=== PATIENT | male | born 1995 | race Hispanic/Latino ===

== ENCOUNTER 2017-12-10 22:16 | Emergency (ER) | payer SELFPAY ==
--- NOTE | 2017-12-11 03:16 | EDPHYS ---
Physician Documentation [facility] Name: Nirmal Stein Age: 22 yrs Sex: Male : 1995 Arrival Date: 12/10/2017 Time: 22:18 Bed 26 Private MD: ED Physician Stephen Mays HPI: 12/11 01:00 This 22 yrs old Male presents to ER via Ambulatory with complaints of Fever, pm1 bodyaches. 01:00 Onset: The symptoms/episode began/occurred today. Modifying factors: there are no pm1 obvious modifying factors. Associated signs and symptoms: Pertinent negatives: cough, diarrhea, headache, shortness of breath, sore throat, vomiting. The patient has not experienced similar symptoms in the past. The patient has not recently seen a physician. Historical: - Allergies: 12/10 22:42 No Known Allergies; fc - Home Meds: 22:42 None [Active]; fc - PMHx: 22:42 None; fc - PSHx: 22:42 None; fc - Immunization history:: Last tetanus immunization: unknown. - Social history:: Smoking status: Patient uses tobacco products, smokes one-half pack cigarettes per day, Patient uses alcohol, occasionally. - Ebola Screening: : Patient negative for fever greater than or equal to 101.5 degrees Fahrenheit, and additional compatible Ebola Virus Disease symptoms Patient denies exposure to infectious person Patient denies travel to an Ebola-affected area in the 21 days before illness onset. ROS: 12/11 01:00 Eyes: Negative for injury, pain, redness, and discharge, ENT: Negative for injury, pm1 pain, and discharge, Neck: Negative for injury, pain, and swelling, Cardiovascular: Negative for chest pain, palpitations, and edema. Respiratory: Negative for shortness of breath, cough, wheezing, and pleuritic chest pain, Abdomen/GI: Negative for abdominal pain, nausea, vomiting, diarrhea, and constipation, Back: Negative for injury and pain, : Negative for injury, bleeding, discharge, and swelling, MS/Extremity: Negative for injury and deformity, Skin: Negative for injury, rash, and discoloration, Neuro: Negative for headache, weakness, numbness, tingling, and seizure. Constitutional: Positive for fever, Negative for poor PO intake. Exam: 01:00 Constitutional: This is a well developed, well nourished patient who is awake, alert, pm1 and in no acute distress. Head/Face: Normocephalic, atraumatic. Eyes: Pupils equal round and reactive to light, extra-ocular motions intact. Lids and lashes normal. Conjunctiva and sclera are non-icteric and not injected. Cornea within normal limits. Periorbital areas with no swelling, redness, or edema. ENT: Nares patent. No nasal discharge, no septal abnormalities noted. Tympanic membranes are normal and external auditory canals are clear. Oropharynx with no redness, swelling, or masses, exudates, or evidence of obstruction, uvula midline. Mucous membranes moist. Neck: Trachea midline, no thyromegaly or masses palpated, and no cervical lymphadenopathy. Supple, full range of motion without nuchal rigidity, or vertebral point tenderness. No Meningismus. Chest/axilla: Normal chest wall appearance and motion. Nontender with no deformity. No lesions are appreciated. Cardiovascular: Regular rate and rhythm with a normal S1 and S2. No gallops, murmurs, or rubs. Normal PMI, no JVD. No pulse deficits. Respiratory: Lungs have equal breath sounds bilaterally, clear to auscultation and percussion. No rales, rhonchi or wheezes noted. No increased work of breathing, no retractions or nasal flaring. Abdomen/GI: Soft, non-tender, with normal bowel sounds. No distension or tympany. No guarding or rebound. No evidence of tenderness throughout. Back: No spinal tenderness. No costovertebral tenderness. Full range of motion. Skin: Warm, dry with normal turgor. Normal color with no rashes, no lesions, and no evidence of cellulitis. MS/ Extremity: Pulses equal, no cyanosis. Neurovascular intact. Full, normal range of motion. 01:00 Neuro: Orientation: is normal, Motor: is normal, moves all fours, Gait: is steady, at a normal pace, without difficulty. Vital Signs: 12/10 22:25 BP 142 / 82; Pulse 108; Resp 20; Temp 99.5(O); Pulse Ox 96% on R/A; Weight 108.86 kg fc (R); Height 5 ft. 5 in. (165.10 cm) (R); Pain 6/10; 22:52 BP 121 / 82; Pulse 103; Resp 18; Pulse Ox 100% on R/A; Pain 4/10; mg2 23:57 BP 108 / 69; Pulse 97; Resp 18; Pulse Ox 98% on R/A; mg2 12/11 01:22 BP 110 / 70; Pulse 99; Resp 18; Temp 98.6(O); Pulse Ox 100% ; Pain 0/10; mg2 02:32 BP 111 / 58; Pulse 100; Resp 18; Pulse Ox 100% on R/A; mg2 12/10 22:25 Body Mass Index 39.94 (108.86 kg, 165.10 cm) fc MDM: 12/10 22:43 Patient medically screened. pm1 12/11 03:06 Data reviewed: vital signs. Data interpreted: Pulse oximetry: on room air is 100 %. pm1 Interpretation: normal. Counseling: I had a detailed discussion with the patient and/or guardian regarding: the historical points, exam findings, and any diagnostic results supporting the discharge/admit diagnosis, radiology results, the need for outpatient follow up, to return to the emergency department if symptoms worsen or persist or if there are any questions or concerns that arise at home. 12/10 22:56 Order name: Flu; Complete Time: 15:26 pm1 12/10 23:01 Order name: Strep; Complete Time: 00:14 pm1 12/10 23:01 Order name: Chest Pa And Lat (2 Views) XRAY; Complete Time: 15:26 pm1 12/11 00:12 Order name: Throat Culture EDMS Administered Medications: 12/10 23:02 Drug: Tylenol 1000 mg Route: PO; mg2 12/11 00:54 Follow up: Response: No adverse reaction; Marked relief of symptoms mg2 Disposition: 12/11/17 03:15 Discharged to Home. Impression: Influenza due to unidentified influenza virus. - Condition is Stable. - Discharge Instructions: Influenza, Adult. - Prescriptions for Tamiflu 75 mg Oral Capsule - take 1 tablet by ORAL route every 12 hours for 5 days; 10 tablet. - Work release form, Medication Reconciliation Form, Thank You Letter, Antibiotic Education, Prescription Opioid Use form. - Follow up: Emergency Department; When: As needed; Reason: Worsening of condition. Follow up: Private Physician; When: 2 - 3 days; Reason: Recheck today's complaints, Continuance of care, Re-evaluation by your physician. - Problem is new. - Symptoms have improved. Addendum: 12/15/2017 12:05 Co-signature as Attending Physician, Stephen Mays MD. g s Signatures: Dispatcher [employer] EDMS Phyllis Salomon RN RN Nash Crews, SAP DEVELOPER SAP DEVELOPER pm1 Stephen Mays MD MD Emir Torres, RN RN mg2 Corrections: (The following items were deleted from the chart) 12/11 03:21 03:15 12/11/2017 03:15 Discharged to Home. Impression: Influenza due to unidentified mg2 influenza virus. Condition is Stable. Forms are Medication Reconciliation Form, Thank You Letter, Antibiotic Education, Prescription Opioid Use. Follow up: Emergency Department; When: As needed; Reason: Worsening of condition. Follow up: Private Physician; When: 2 - 3 days; Reason: Recheck today's complaints, Continuance of care, Re-evaluation by your physician. Problem is new. Symptoms have improved. pm1
--- NOTE | 2017-12-11 03:16 | ER ---
Nurse's Notes [facility] Name: Nirmal Stein Age: 22 yrs Sex: Male : 1995 Arrival Date: 12/10/2017 Time: 22:18 Bed 26 Private MD: Diagnosis: Influenza due to unidentified influenza virus Presentation: 12/10 22:25 Presenting complaint: Patient states: that since yesterday he has had a fever and body fc aches, along with nausea. Denies any cough, congestion, sore throat or ear pain. Transition of care: patient was not received from another setting of care. Onset of symptoms was December 09, 2017. Risk Assessment: Do you want to hurt yourself or someone else? Patient reports no desire to harm self or others. Initial Sepsis Screen: Does the patient meet any 2 criteria? HR > 90 bpm. Does the patient have a suspected source of infection? No. Patient's initial sepsis screen is negative. Care prior to arrival: Medication(s) given: Motrin, 400 mg, last at 1930. 22:25 Method Of Arrival: Ambulatory fc 22:25 Acuity: GARRETT 4 fc Historical: - Allergies: 22:42 No Known Allergies; fc - Home Meds: 22:42 None [Active]; fc - PMHx: 22:42 None; fc - PSHx: 22:42 None; fc - Immunization history:: Last tetanus immunization: unknown. - Social history:: Smoking status: Patient uses tobacco products, smokes one-half pack cigarettes per day, Patient uses alcohol, occasionally. - Ebola Screening: : Patient negative for fever greater than or equal to 101.5 degrees Fahrenheit, and additional compatible Ebola Virus Disease symptoms Patient denies exposure to infectious person Patient denies travel to an Ebola-affected area in the 21 days before illness onset. Screenin:25 Abuse screen: Denies threats or abuse. Nutritional screening: No deficits noted. fc Tuberculosis screening: No symptoms or risk factors identified. Fall Risk None identified. Assessment: 22:50 General: Appears in no apparent distress. comfortable, Behavior is calm, cooperative. mg2 Pain: Complains of pain in body Pain does not radiate. Pain currently is 4 out of 10 on a pain scale. Quality of pain is described as aching, Pain began gradually, 1 day ago. Is intermittent, Alleviated by medications, rest. Neuro: Level of Consciousness is awake, alert, obeys commands, Oriented to person, place, time, situation. Cardiovascular: Capillary refill < 3 seconds Patient's skin is warm and dry. Respiratory: Airway is patent Respiratory effort is even, unlabored, Respiratory pattern is regular, symmetrical. Respiratory: Breath sounds are clear bilaterally. in right upper lobe, left upper lobe, right middle lobe, left lower lobe, left posterior upper lobe, right posterior upper lobe, left posterior lower lobe, right posterior middle lobe and right posterior lower lobe. GI: Reports nausea. : No signs and/or symptoms were reported regarding the genitourinary system. EENT: No signs and/or symptoms were reported regarding the EENT system. Derm: Skin is intact, Skin is pink, warm \T\ dry. normal. Musculoskeletal: Circulation, motion, and sensation intact. 12/11 01:22 Reassessment: Patient appears in no apparent distress at this time. Patient and/or mg2 family updated on plan of care and expected duration. Pain level reassessed. Patient is alert, oriented x 3, equal unlabored respirations, skin warm/dry/pink. patient is willing to wait for flu test result. 02:32 Reassessment: Patient appears in no apparent distress at this time. Patient and/or mg2 family updated on plan of care and expected duration. Pain level reassessed. Patient is alert, oriented x 3, equal unlabored respirations, skin warm/dry/pink. Vital Signs: 12/10 22:25 BP 142 / 82; Pulse 108; Resp 20; Temp 99.5(O); Pulse Ox 96% on R/A; Weight 108.86 kg fc (R); Height 5 ft. 5 in. (165.10 cm) (R); Pain 6/10; 22:52 BP 121 / 82; Pulse 103; Resp 18; Pulse Ox 100% on R/A; Pain 4/10; mg2 23:57 BP 108 / 69; Pulse 97; Resp 18; Pulse Ox 98% on R/A; mg2 12/11 01:22 BP 110 / 70; Pulse 99; Resp 18; Temp 98.6(O); Pulse Ox 100% ; Pain 0/10; mg2 02:32 BP 111 / 58; Pulse 100; Resp 18; Pulse Ox 100% on R/A; mg2 12/10 22:25 Body Mass Index 39.94 (108.86 kg, 165.10 cm) ED Course: 12/10 22:18 Patient arrived in ED. ds1 22:25 Arm band placed on Patient placed in an exam room, on a stretcher. fc 22:25 Patient has correct armband on for positive identification. Bed in low position. Call light in reach. Pulse ox on. NIBP on. 22:39 Emir Torres RN is Primary Nurse. mg2 22:41 Triage completed. 22:41 Nash Crews NP is PHCP. pm1 22:41 Stephen Mays MD is Attending Physician. pm1 12/11 00:23 Radiology exam delayed due to CODE 99. tm4 00:24 Patient moved to radiology via wheelchair. tm4 00:24 X-ray completed. Patient tolerated procedure well. tm4 00:24 Patient moved back from radiology. tm4 00:27 Chest Pa And Lat (2 Views) XRAY In Process Unspecified. EDMS 03:14 No provider procedures requiring assistance completed. Patient did not have IV access mg2 during this emergency room visit. Administered Medications: 12/10 23:02 Drug: Tylenol 1000 mg Route: PO; mg2 12/11 00:54 Follow up: Response: No adverse reaction; Marked relief of symptoms mg2 Outcome: 03:15 Discharge ordered by MD. pm1 03:20 Discharged to home ambulatory, with family. mg2 03:20 Condition: stable 03:20 Discharge instructions given to patient, family, Instructed on discharge instructions, follow up and referral plans. medication usage, Demonstrated understanding of instructions, follow-up care, medications, Prescriptions given X 1. 03:21 Patient left the ED. mg2 Signatures: Dispatcher [employer] EDMS Debby Butt tm4 Phyllis Salomon RN RN [place]ales[place]elli ds1 Nash Crews NP MOTTLER MACHINE FEEDER pm1 Emir Torres RN RN mg2 Corrections: (The following items were deleted from the chart) 12/10 23:59 23:59 No provider procedures requiring assistance completed. mg2 mg2 23:59 23:59 Patient admitted, IV remains in place. mg2 mg2
--- NOTE | 2017-12-11 08:00 | RAD REPORT ---
EXAM DESCRIPTION: RAD - Chest Pa And Lat (2 Views) - 12/11/2017 12:27 am CLINICAL HISTORY: Fever COMPARISON: March 2017 TECHNIQUE: PA and lateral views of the chest were obtained. FINDINGS: The lungs are clear. Heart size is normal and central vasculature is within normal limit s. No pleural effusion or pneumothorax seen. No acute bony finding noted. No aortic abnormality. IMPRESSION: No acute cardiopulmonary process. No suspicious interval change.
== END 2017-12-11 03:21 | disposition home or self-care (01) ==
LOC: ER 22:16
DX: J11.1 Influenza due to unidentified influenza virus with other respiratory manifestations (principal); F17.210 Nicotine dependence, cigarettes, uncomplicated
CPT/HCPCS: 71046; 87070; 87081; 87804; 99284

== ENCOUNTER 2020-06-25 03:55 | Emergency (ER) | payer SELFPAY ==
[2020-06-25] MEDS ORDERED: METHYLPREDNISOLONE 125 MG INJ ONE (04:30)
[2020-06-25] MEDS ORDERED: DIPHENHYDRAMINE 50 MG/ML VIAL ONE (04:30)
[2020-06-25] MEDS ORDERED: FAMOTIDINE 20 MG/2 ML VIAL IV ONE (04:31)
--- NOTE | 2020-06-25 05:26 | ER ---
Nurse's Notes [facility] Name: Nirmal Stein Age: 25 yrs Sex: Male : 1995 Arrival Date: 06/25/2020 Time: 03:57 Bed 20 Private MD: Diagnosis: Urticaria, unspecified Presentation: 06/25 04:05 Chief complaint: Patient states: i have rash all over me started 2 hours ago. mg2 Coronavirus screen: Client denies travel out of the [place] in the last 14 days. Client reports previous positive COVID test result. Date of collection: June 06, 2020. Ebola Screen: No symptoms or risks identified at this time. Initial Sepsis Screen: Does the patient meet any 2 criteria? No. Patient's initial sepsis screen is negative. Does the patient have a suspected source of infection? No. Patient's initial sepsis screen is negative. Risk Assessment: Do you want to hurt yourself or someone else? Patient reports no desire to harm self or others. Onset of symptoms was June 25, 2020 at 02:00. 04:05 Method Of Arrival: Ambulatory mg2 04:05 Acuity: GARRETT 4 mg2 Historical: - Allergies: 04:07 No Known Allergies; mg2 - Home Meds: 04:07 None [Active]; mg2 - PMHx: 04:07 None; mg2 - PSHx: 04:07 None; mg2 - Immunization history:: Flu vaccine status is unknown. - Social history:: Smoking status: Patient denies any tobacco usage or history of. Patient/guardian denies using alcohol, street drugs, IV drugs. - Family history:: not pertinent. - Hospitalizations: : No recent hospitalization is reported. Screenin:18 Abuse screen: Denies threats or abuse. Denies injuries from another. Nutritional mg2 screening: No deficits noted. Tuberculosis screening: No symptoms or risk factors identified. Fall Risk IV access (20 points). Assessment: 04:19 General: Appears in no apparent distress. comfortable, Behavior is calm, cooperative. mg2 Pain: Denies pain. Neuro: Level of Consciousness is awake, alert, obeys commands, Oriented to person, place, time, situation. Cardiovascular: Capillary refill < 3 seconds Patient's skin is warm and dry. Respiratory: Airway is patent Respiratory effort is even, unlabored, Respiratory pattern is regular, symmetrical. GI: No signs and/or symptoms were reported involving the gastrointestinal system. : No signs and/or symptoms were reported regarding the genitourinary system. EENT: No signs and/or symptoms were reported regarding the EENT system. Derm: Rash noted that is itchy, on head, neck, chest, left arm and right leg. Musculoskeletal: Circulation, motion, and sensation intact. Capillary refill < 3 seconds. 05:20 Reassessment: Patient appears in no apparent distress at this time. Patient states mg2 feeling better. Patient states symptoms have improved. Vital Signs: 04:05 BP 156 / 102; Pulse 69; Resp 18; Temp 97.9; Pulse Ox 100% on R/A; Weight 104.33 kg; mg2 Height 5 ft. 5 in. (165.10 cm); Pain 0/10; 05:15 BP 145 / 80; Pulse 70; Resp 18; Temp 98; Pulse Ox 100% on R/A; mg2 04:05 Body Mass Index 38.27 (104.33 kg, 165.10 cm) mg2 ED Course: 03:57 Patient arrived in ED. cl3 04:00 Vinny Fang MD is Attending Physician. rn 04:04 Emir Torres RN is Primary Nurse. mg2 04:06 Triage completed. mg2 04:07 Arm band placed on. mg2 04:10 Inserted saline lock: 20 gauge in right antecubital area, using aseptic technique. mg2 04:18 No provider procedures requiring assistance completed. mg2 04:20 Patient has correct armband on for positive identification. Door closed. mg2 05:30 IV discontinued, intact, bleeding controlled, No redness/swelling at site. Pressure mg2 dressing applied. Administered Medications: 04:18 Drug: SOLU-Medrol 125 mg Route: IVP; Site: right antecubital; mg2 05:22 Follow up: Response: No adverse reaction; Marked relief of symptoms mg2 04:18 Drug: Benadryl (diphenhydrAMINE) 50 mg Route: IVP; Site: right antecubital; mg2 05:22 Follow up: Response: No adverse reaction; Marked relief of symptoms mg2 04:18 Drug: Pepcid (famotidine) 20 mg Route: IVP; Site: right antecubital; mg2 05:22 Follow up: Response: No adverse reaction; Marked relief of symptoms mg2 Outcome: 05:26 Discharge ordered by . rn 05:30 Discharged to home ambulatory. mg2 05:30 Condition: stable 05:30 Discharge instructions given to patient, Instructed on discharge instructions, follow up and referral plans. medication usage, Demonstrated understanding of instructions, follow-up care, medications, Prescriptions given X 1. 05:31 Patient left the ED. mg2 Signatures: Vinny Fang MD MD rn Emir Torres RN RN mg2 Afsaneh Garcia cl3
--- NOTE | 2020-06-25 05:27 | EDPHYS ---
Physician Documentation [facility] Name: Nirmal Stein Age: 25 yrs Sex: Male : 1995 Arrival Date: 06/25/2020 Time: 03:57 Bed 20 Private MD: ED Physician Vinny Fang HPI: 06/25 04:16 This 25 yrs old Male presents to ER via Ambulatory with complaints of Rash. rn 04:16 The patient's rash thought to be caused by an unknown cause. The rash is located on the rn body diffusely. The rash can be described as erythematous, urticarial. Onset: The symptoms/episode began/occurred this morning. Associated signs and symptoms: Pertinent positives: itching, Pertinent negatives: fever. Severity of symptoms: At their worst the symptoms were mild in the emergency department the symptoms are unchanged. 04:20 The patient has not experienced similar symptoms in the past. The patient has not rn recently seen a physician. Reports woke up with rash and itching. No new exposure. No sob. No abd pain. No fever. . Historical: - Allergies: 04:07 No Known Allergies; mg2 - Home Meds: 04:07 None [Active]; mg2 - PMHx: 04:07 None; mg2 - PSHx: 04:07 None; mg2 - Immunization history:: Flu vaccine status is unknown. - Social history:: Smoking status: Patient denies any tobacco usage or history of. Patient/guardian denies using alcohol, street drugs, IV drugs. - Family history:: not pertinent. - Hospitalizations: : No recent hospitalization is reported. ROS: 04:20 Constitutional: Negative for fever, chills, and weight loss, Eyes: Negative for injury, rn pain, redness, and discharge, ENT: Negative for injury, pain, and discharge, Cardiovascular: Negative for chest pain, palpitations, and edema, Respiratory: Negative for shortness of breath, cough, wheezing, and pleuritic chest pain, Abdomen/GI: Negative for abdominal pain, nausea, vomiting, diarrhea, and constipation, Skin: + diffuse urticaria Exam: 04:20 Constitutional: This is a well developed, well nourished patient who is awake, alert, rn and in no acute distress. Head/Face: Normocephalic, atraumatic. ENT: No intraoral lesions Cardiovascular: Regular rate and rhythm . No pulse deficits. Respiratory: No increased work of breathing, no retractions or nasal flaring. Skin: Diffuse urticaria, no bullae. No petechiae. MS/ Extremity: Pulses equal, no cyanosis. Neurovascular intact. Full, normal range of motion. Equal circumference. Neuro: Awake and alert, GCS 15, oriented to person, place, time, and situation. Vital Signs: 04:05 BP 156 / 102; Pulse 69; Resp 18; Temp 97.9; Pulse Ox 100% on R/A; Weight 104.33 kg; mg2 Height 5 ft. 5 in. (165.10 cm); Pain 0/10; 05:15 BP 145 / 80; Pulse 70; Resp 18; Temp 98; Pulse Ox 100% on R/A; mg2 04:05 Body Mass Index 38.27 (104.33 kg, 165.10 cm) mg2 MDM: 04:00 Patient medically screened. rn 05:25 Differential diagnosis: allergic reaction. Data reviewed: vital signs, nurses notes, rn and as a result, I will discharge patient. Counseling: I had a detailed discussion with the patient and/or guardian regarding: the historical points, exam findings, and any diagnostic results supporting the discharge/admit diagnosis, the need for outpatient follow up, to return to the emergency department if symptoms worsen or persist or if there are any questions or concerns that arise at home. Response to treatment: the patient's symptoms have markedly improved after treatment, and as a result, I will discharge patient. Special discussion: I discussed with the patient/guardian in detail that at this point there is no indication for admission to the hospital. It is understood, however, that if the symptoms persist or worsen the patient needs to return immediately for re-evaluation. 06/25 04:07 Order name: IV Start; Complete Time: 04:11 rn Administered Medications: 04:18 Drug: SOLU-Medrol 125 mg Route: IVP; Site: right antecubital; mg2 05:22 Follow up: Response: No adverse reaction; Marked relief of symptoms mg2 04:18 Drug: Benadryl (diphenhydrAMINE) 50 mg Route: IVP; Site: right antecubital; mg2 05:22 Follow up: Response: No adverse reaction; Marked relief of symptoms mg2 04:18 Drug: Pepcid (famotidine) 20 mg Route: IVP; Site: right antecubital; mg2 05:22 Follow up: Response: No adverse reaction; Marked relief of symptoms mg2 Disposition: 06/25/20 05:26 Discharged to Home. Impression: Urticaria, unspecified. - Condition is Stable. - Discharge Instructions: Hives. - Prescriptions for Prednisone 20 mg Oral Tablet - take 3 tablet by ORAL route once daily for 5 days; 15 tablet. - Medication Reconciliation Form, Thank You Letter, Antibiotic Education, Prescription Opioid Use form. - Follow up: Private Physician; When: As needed; Reason: Recheck today's complaints, Re-evaluation by your physician. - Problem is new. - Symptoms have improved. Signatures: Vinny Fang MD MD rn Gardose, Michele, RN RN mg2 Corrections: (The following items were deleted from the chart) 05:31 05:26 06/25/2020 05:26 Discharged to Home. Impression: Urticaria, unspecified. mg2 Condition is Stable. Forms are Medication Reconciliation Form, Thank You Letter, Antibiotic Education, Prescription Opioid Use. Follow up: Private Physician; When: As needed; Reason: Recheck today's complaints, Re-evaluation by your physician. Problem is new. Symptoms have improved. rn
[2020-06-25 16:37] VITALS: O2SAT 100
[2020-06-25 16:39] VITALS: BP 145/80; TEMP 98
== END 2020-06-25 05:31 | disposition home or self-care (01) ==
LOC: ER 03:55
DX: L50.9 Urticaria, unspecified (principal)
CPT/HCPCS: 96374; 96375; 99283; J1200; J2930

== ENCOUNTER 2021-05-31 13:29 | Emergency (ER) | payer SELFPAY ==
--- OUTSIDE RECORDS SUMMARY | 2021-05-31 13:31 | XMS REPORT | Continuity of Care Document ---
:1995 Author Organization [facility] Address [address] [place] [address] Dr. Ross [address] [place] [id number] Care Team Providers Name Role Phone HENRIQUE Attending Clinician Unavailable HENRIQUE Admitting Clinician Unavailable Payers Payer Name Policy Type Policy Number Effective Date Expiration Date S ource Problems This patient has no known problems. Allergies, Adverse Reactions, Alerts This patient has no known allergies or adverse reactions. Medications This patient has no known medications. Procedures This patient has no known procedures. Encounters Start End Encounter Admission Attending Care Care Encounter Source Date/Time Date/Time Type Type Clinicians Facility Department ID 2019-10-31 2019-10-[address] [facility] [id number] [place] 04:46:00 04:46:00 [id number] da [facility] Program Results This patient has no known results.
[2021-05-31 14:09] LABS: Urine Blood 2+ (Negative); Urine Glucose Negative (Negative); Urine Protein 2+ (Negative); Urine Specific Gravity >=1.030 (1.005-1.030)
[2021-05-31 14:44] LABS: Absolute Lymphocytes (CBC) 1.5 K/uL (0.7-4.9); Hematocrit 43.4 % (39.6-49.0); Lymphocytes % 16.3 % (15.3-44.8); MPV 7.6 fL (7.6-11.3); RBC Red Blood Cell Count 4.95 M/uL (4.33-5.43)
[2021-05-31 15:02] LABS: ALT/SGPT 64 U/L (12-78); AST/SGOT 29 U/L (15-37); Albumin 3.9 g/dL (3.4-5.0); Alkaline Phosphatase 72 U/L (45-117); BUN Blood Urea Nitrogen 13 mg/dL (7-18); Bicarbonate 24 mmol/L (21-32); Bilirubin Direct 0.2 mg/dL (0-0.2); Bilirubin Total 0.8 mg/dL (0.2-1.0); Glucose Level 104 mg/dL (74-106); Lipase 43 U/L (73-393); Potassium 3.6 mmol/L (3.5-5.1); Protein, Total 7.6 g/dL (6.4-8.2); Sodium Level 140 mmol/L (136-145)
--- NOTE | 2021-05-31 15:09 | RAD REPORT ---
EXAM DESCRIPTION: CT - Stone Protocol - 05/31/2021 2:53 pm CLINICAL HISTORY: Flank pain. FLANK PAIN COMPARISON: No comparisons TECHNIQUE: Axial images were obtained without oral or IV contrast. Lack of contrast limits solid org an and vascular assessment. The [id number] spans the entirety of the system partially obscuring uppermost abdomen and lung bases. Coronal reformatted images were obtained and reviewed. All CT scans are performed using dose optimization technique as appropriate and may include automated exposure control or mA/KV adjustment according to patient size. FINDINGS: The lower lung carter are clear. Diffuse fatty liver is present.Spleen is normal. The pancreas and adrenal glands are normal. No patho logic lymphadenopathy in the abdomen or pelvis. 3 mm calculus is present inferior calyx left kidney. Punctate calculus is also present in the urinary bladder measuring 2 mm. This may be a recently passed calculus from the right side. Small 21 mm hypo dense lesion is seen anterior superior left kidney, possibly a cyst but incompletely assessed on this limited noncontrast study. . No bowel obstruction, free air, free fluid or abscess. Normal appendix noted. No significant bony abnormality. IMPRESSION: 2 mm calculus is seen in the urinary bladder towards the right which may be recently pas sed. 3 mm calculus inferior calyx left kidney.
--- NOTE | 2021-05-31 16:34 | ER ---
Nurse's Notes [facility] Name: Nirmal Stein Age: 26 yrs Sex: Male : 1995 Arrival Date: 05/31/2021 Time: 13:32 Bed 13 Private MD: Diagnosis: Calculus of ureter Presentation: 05/31 13:39 Chief complaint: Patient states: "My side hurts and when I pee it norris." Pt denies ab2 blood in urine. Pt states he is having urinary frequency and urgency. Coronavirus screen: Vaccine status: Patient reports receiving the 2nd dose of the covid vaccine. Client denies travel out of the [place] in the last 14 days. At this time, the client does not indicate any symptoms associated with coronavirus-19. Ebola Screen: Patient negative for fever greater than or equal to 101.5 degrees Fahrenheit, and additional compatible Ebola Virus Disease symptoms Patient denies exposure to infectious person. Patient denies travel to an Ebola-affected area in the 21 days before illness onset. No symptoms or risks identified at this time. Initial Sepsis Screen: Does the patient meet any 2 criteria? No. Patient's initial sepsis screen is negative. Does the patient have a suspected source of infection? No. Patient's initial sepsis screen is negative. Risk Assessment: Do you want to hurt yourself or someone else? Patient reports no desire to harm self or others. Onset of symptoms is unknown. 13:39 Method Of Arrival: Ambulatory ab2 13:39 Acuity: GARRETT 3 ab2 Triage Assessment: 13:42 General: Appears in no apparent distress. uncomfortable, Behavior is calm, cooperative, ab2 appropriate for age. Pain: Complains of pain in right low back Pain does not radiate. Pain currently is 8 out of 10 on a pain scale. : Reports burning with urination, urgency, urinary frequency. Musculoskeletal: Range of motion: intact in all extremities. Historical: - Allergies: 13:41 No Known Allergies; ab2 - Home Meds: 13:41 None [Active]; ab2 - PMHx: 13:41 None; ab2 - PSHx: 13:41 None; ab2 - Immunization history:: Adult Immunizations up to date. - Social history:: Smoking status: Reported history of juuling and/or vaping. Patient/guardian denies using tobacco, Stopped _ months ago 3. Screenin:10 Abuse screen: Denies threats or abuse. Denies injuries from another. Nutritional ic1 screening: No deficits noted. Tuberculosis screening: No symptoms or risk factors identified. Fall Risk None identified. Assessment: 14:10 General: Appears uncomfortable, Behavior is calm, cooperative. Pain: Complains of pain ic1 in back and right low back Neuro: Level of Consciousness is awake, alert, obeys commands, Oriented to person, place, time, situation. Cardiovascular: No deficits noted. Respiratory: No deficits noted. GI: Reports diarrhea, nausea, vomiting, this AM. : Reports burning with urination. EENT: No deficits noted. Derm: No deficits noted. Musculoskeletal: No deficits noted. Vital Signs: 13:39 BP 157 / 100; Pulse 69; Resp 18; Temp 98.1(TE); Pulse Ox 98% on R/A; Weight 108.86 kg; ab2 Height 5 ft. 5 in. (165.10 cm); Pain 6/10; 14:10 BP 133 / 78; Pulse 67; Resp 18; Pulse Ox 99% on R/A; ic1 17:20 BP 120 / 83; Pulse 69; Resp 18; Pulse Ox 98% on R/A; ic1 13:39 Body Mass Index 39.94 (108.86 kg, 165.10 cm) ab2 ED Course: 13:32 Patient arrived in ED. rg4 13:40 Fernando Mathew PA is PHCP. jmm 13:40 Elia Dejesus MD is Attending Physician. jmm 13:41 Triage completed. ab2 13:43 Arm band placed on left wrist. ab2 14:02 Karol Nieto, BALA is Primary Nurse. ic1 14:10 Patient has correct armband on for positive identification. Bed in low position. Call ic1 light in reach. 14:36 No provider procedures requiring assistance completed. Inserted saline lock: 20 gauge ic1 in right antecubital area, using aseptic technique. Blood collected. 14:51 CT Stone Protocol In Process Unspecified. EDMS 16:34 Catrachito Martinez MD is Referral Physician. jmm 17:20 IV discontinued, intact, bleeding controlled, No redness/swelling at site. Pressure ic1 dressing applied. Administered Medications: No medications were administered Outcome: 16:33 Discharge ordered by . gretel 17:15 Discharged to home ambulatory, with family. ic1 17:15 Condition: stable 17:15 Discharge instructions given to patient, Instructed on discharge instructions, follow up and referral plans. Demonstrated understanding of instructions, follow-up care. 17:20 Patient left the ED. ic1 Signatures: Dispatcher [employer] EDMS Fernando Mathew PA PA jmm Garcia, Rubi rg4 Karol Nieto RN RN ic1 Leonid Ledesma2
--- NOTE | 2021-05-31 16:34 | EDPHYS ---
Physician Documentation [facility] Name: Nirmal Stein Age: 26 yrs Sex: Male : 1995 Arrival Date: 05/31/2021 Time: 13:32 Bed 13 Private MD: ED Physician Elia Dejesus Historical: - Allergies: 05/31 13:41 No Known Allergies; ab2 - Home Meds: 13:41 None [Active]; ab2 - PMHx: 13:41 None; ab2 - PSHx: 13:41 None; ab2 - Immunization history:: Adult Immunizations up to date. - Social history:: Smoking status: Reported history of juuling and/or vaping. Patient/guardian denies using tobacco, Stopped _ months ago 3. Vital Signs: 13:39 BP 157 / 100; Pulse 69; Resp 18; Temp 98.1(TE); Pulse Ox 98% on R/A; Weight 108.86 kg; ab2 Height 5 ft. 5 in. (165.10 cm); Pain 6/10; 14:10 BP 133 / 78; Pulse 67; Resp 18; Pulse Ox 99% on R/A; ic1 17:20 BP 120 / 83; Pulse 69; Resp 18; Pulse Ox 98% on R/A; ic1 13:39 Body Mass Index 39.94 (108.86 kg, 165.10 cm) ab2 MDM: 14:16 Patient medically screened. [facility] 05/31 14:09 Order name: Urine Dipstick-Ancillary; Complete Time: 14:18 [facility] 05/31 14:28 Order name: Basic Metabolic Panel; Complete Time: 15:07 [facility] 05/31 14:28 Order name: CBC with Diff; Complete Time: 14:57 [facility] 05/31 14:28 Order name: Hepatic Function; Complete Time: 15:07 [facility] 05/31 14:28 Order name: Lipase; Complete Time: 15:07 [facility] 05/31 14:30 Order name: CT Stone Protocol; Complete Time: 15:31 [facility] 05/31 14:28 Order name: IV Saline Lock; Complete Time: 14:36 [facility] 05/31 14:28 Order name: Labs collected and sent; Complete Time: 14:36 [facility] Administered Medications: No medications were administered Disposition Summary: 05/31/21 16:33 Discharge Ordered Location: Home jmm Condition: Stable jmm Diagnosis - Calculus of ureter jm Followup: jmm - With: Private Physician - When: 2 - 3 days - Reason: Recheck today's complaints, Continuance of care, Re-evaluation by your physician Followup: [facility] - With: Catrachito Martinez MD - When: 2 - 3 days - Reason: Recheck today's complaints, Continuance of care, Re-evaluation by your physician Discharge Instructions: - Discharge Summary Sheet [facility] - Kidney Stones [facility] - Dietary Guidelines to Help Prevent Kidney Stones jm Forms: - Medication Reconciliation Form [facility] - Thank You Letter [facility] - Antibiotic Education [facility] - Prescription Opioid Use [facility] Signatures: Dispatcher [employer] Fernando Mar PA PA jmm Bleininger, Alexis ab2
[2021-05-31 18:24] VITALS: TEMP 98.1
[2021-05-31 18:26] VITALS: BP 120/83; O2SAT 98
== END 2021-05-31 17:20 | disposition home or self-care (01) ==
LOC: ER 13:29
DX: N20.1 Calculus of ureter (principal); Z87.891 Personal history of nicotine dependence
CPT/HCPCS: 36415; 74176; 76377; 80048; 80076; 81003; 83690; 85025; 99283